=== PATIENT | female | born 1970 | race Caucasian/White ===

== ENCOUNTER 2022-04-28 18:00 | Emergency (ER) | payer MEDICAID ==
[~2022-04-28] VITALS: Ht 165.1 cm; Wt 65.8 kg
[2022-04-28 18:59] LABS: CALCIUM, SERUM 8.6 mg/dL (8.5-10.1); CARBON DIOXIDE 27 mmol/L (21-32); CHLORIDE 106 mmol/L (98-107); CREATININE 0.8 mg/dL (0.6-1.3); GLUCOSE 97 mg/dL (74-106); POTASSIUM 3.8 mmol/L (3.5-5.1); SODIUM SERUM 140 mmol/L (136-145); UREA NITROGEN, BLOOD 17 mg/dL (7-18)
[2022-04-28 19:13] LABS: ALANINE AMINOTRANSFERASE 41 U/L (12-78); ALBUMIN 3.5 g/dL (3.4-5.0); ALCOHOL, BLOOD < 3 mg/dL (0-0); ALKALINE PHOSPHATASE 89 U/L (46-116); ASPARTATE AMINOTRANSFERASE 28 U/L (15-37); BILIRUBIN,DIRECT 0.1 mg/dL (0.0-0.2); BILIRUBIN,TOTAL 0.3 mg/dL (0.2-1.0); TOTAL PROTEIN, SERUM 7.4 g/dL (6.4-8.2)
[2022-04-28 19:14] LABS: ACETAMINOPHEN 0 ug/ml (10-30)
[2022-04-28 19:51] LABS: BASOPHILS % (AUTO) 0.5 % (0.0-2.0); EOSINOPHILS % (AUTO) 3.5 % (0.0-6.0); HEMATOCRIT 31 % (33-45); HEMOGLOBIN 10.6 g/dL (11.5-14.8); LYMPHOCYTES # (AUTO) 0.7 K/uL (0.8-4.8); LYMPHOCYTES % (AUTO) 32.2 % (20.0-44.0); MEAN CORPUSCULAR HGB CONC 35 g/dl (31.0-36.0); MEAN CORPUSCULAR VOLUME 97 fL (82-100); MONOCYTES % (AUTO) 1.8 % (2.0-12.0); NEUTROPHILS # (AUTO) 1.4 K/uL (1.8-8.9); PLATELET COUNT (AUTO) 200 K/uL (150-450); RED BLOOD CELL COUNT(AUTO) 3.17 MIL/uL (4.0-5.2); WHITE BLOOD COUNT (AUTO) 2.2 K/uL (4.3-11.0)
--- NOTE | 2022-04-28 20:40 | NUR ---
urine collected and sent to lab.
[2022-04-28 20:48] LABS: BILIRUBIN,URINE NEGATIVE (NEGATIVE); COLOR,URINE YELLOW (YELLOW); LEUKOCYTE ESTERASE ,URINE NEGATIVE (NEGATIVE); NITRITE, URINE NEGATIVE (NEGATIVE); PH,URINE 6.5 (5.0-8.0); PROTEIN,URINE NEGATIVE (NEGATIVE); UGLUCOSE NEGATIVE (NEGATIVE); UROBILINOGEN,URINE 0.2 EU/dL (0.2)
--- NOTE | 2022-04-28 20:51 | NUR ---
covid swab sent to lab.
[2022-04-28 21:17] LABS: BASOPHILS % (MANUAL) 0 % (0.0-2.0); EOSINOPHILS % (MANUAL) 0 % (0-4); LYMPHOCYTES % (MANUAL) 26 % (16-48); MONOCYTES % (MANUAL) 3 % (0-11.0); NEUTROPHILS % (MANUAL) 71 (42-76)
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
--- NOTE | 2022-04-28 23:54 | NUR ---
Patient discharged to home in stable condition. Written and verbal after care instructions given. Patient verbalizes understanding of instruction. PT ambulatory with a steady gait
[2022-04-29 00:46] VITALS: BP 124/82
== END 2022-04-28 23:55 | disposition home or self-care (01) ==
LOC: ER 18:03
DX: T74.21XA Adult sexual abuse, confirmed, initial encounter (principal); F41.9 Anxiety disorder, unspecified; R45.851 Suicidal ideations; D72.819 Decreased white blood cell count, unspecified; Z20.822 Contact with and (suspected) exposure to COVID-19; D64.9 Anemia, unspecified; E03.9 Hypothyroidism, unspecified; C55 Malignant neoplasm of uterus, part unspecified; Z79.899 Other long term (current) drug therapy
CPT/HCPCS: 99285; 85025; 80048; 80076; 85007; 81003; 36415; 87426; 80143; 80320; 80307; C9803; G0480

== ENCOUNTER 2022-08-09 17:19 | Emergency (ER) | payer MEDICAID ==
[~2022-08-09] VITALS: Ht 165.1 cm; Wt 65.8 kg
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
[2022-08-09] MEDS ORDERED: ACETAMINOPHEN ES 500 MG TABLET ONE (17:45)
[2022-08-09] MEDS ORDERED: ACETAMINOPHEN ES 500 MG TABLET PO ONE (18:00)
[2022-08-09] MEDS ORDERED: MORPHINE SULFATE INJ 2 MG/ML DISP.SYRIN IM ONE (18:00)
[2022-08-09] MEDS ORDERED: MORPHINE SULFATE INJ 2 MG/ML DISP.SYRIN ONE (18:05)
--- NOTE | 2022-08-09 19:27 | NUR ---
Patient discharged to home in stable condition. Written and verbal after care instructions given. Patient verbalizes understanding of instruction.
[2022-08-09 19:28] VITALS: BP 121/82
--- NOTE | 2022-08-09 19:37 | NUR ---
CALLED VENESSA [email or web address] @ [phone] CAPTFIFI MANTILLA WILL CHECK ABOUT ID.
== END 2022-08-09 19:29 | disposition home or self-care (01) ==
LOC: ER 17:32
DX: S09.90XA Unspecified injury of head, initial encounter (principal); V49.59XA Passenger injured in collision with other motor vehicles in traffic accident, initial encounter; Y93.89 Activity, other specified; Y92.413 State road as the place of occurrence of the external cause; Y99.8 Other external cause status
CPT/HCPCS: 99285; 72125; 71045; 96372; 70450; J2270